=== PATIENT | female | born 1950 | race Caucasian/White ===

== ENCOUNTER → 2019-02-21 19:19 | Outpatient (REF) | payer MEDICARE, MEDICAID, SELFPAY ==
[2019-02-21 20:27] LABS: Vitamin D 25 Hydroxy (D3) 29.7 ng/mL (30.0-100.0)
[2019-02-21 20:41] LABS: Thyroid Stimulating Hormone 1.09 uIU/mL (0.47-4.68)
[2019-02-21 21:15] LABS: Vitamin B12 367 pg/mL (239-931)
== END ==
LOC: LAB 19:19
PROVIDERS: PCP Family Medicine Geriatric Medicine; Visit Provider Family Medicine Geriatric Medicine
DX: B18.2 Chronic viral hepatitis C (principal); G89.4 Chronic pain syndrome; Z13.29 Encounter for screening for other suspected endocrine disorder; M81.0 Age-related osteoporosis without current pathological fracture; M79.7 Fibromyalgia
CPT/HCPCS: 36415; 82306; 82607; 84443; 87522

== ENCOUNTER → 2020-08-13 13:11 | Outpatient (CLI) | payer MEDICARE, MEDICAID, SELFPAY ==
--- NOTE | 2020-08-13 | DI.MRI.S_ITS ---
PROCEDURE: MR LUMBAR SPINE WO CON INDICATIONS: LUMBAR FRACTURE TECHNIQUE: Noncontrast sagittal T1 spin echo and T2 fast echo, sagittal STIR, axial T1 and T2 fast spin echo through the lumbar spine. In cases with scoliosis, additional coronal T2 fast spin echo may be performed. COMPARISON: [facility], CR, XR LUMBAR SPINE 2 OR 3 VIEWS, 07/24/2020, 11:48. FINDINGS: Image quality: Excellent. Alignment and Curvature: 5 lumbar type vertebral bodies are present by plain film. There is mild, grade 1 retrolisthesis of L1 on L2 and L2 on L3. Mild grade 1 anterolisthesis L3 on L4. Bone Marrow: Marrow is of normal overall signal. No acute vertebral body compression fractures. There is moderate ill-defined STIR signal elevation within the inferior L3 and superior L4 endplates adjacent to the L3-L4 intervertebral disc. Mild reactive signal within the endplates adjacent to the T11-T12, L1-L2, L4-L5 and L5-S1 intervertebral discs. Moderate chronic wedging of T12. Mild chronic wedging of L1. Posterior T11 hemangiomata. Spinal Cord: Conus medullaris terminates at the upper L2 level. Visualized cord demonstrates normal signal and size. Paraspinous Soft Tissues: No paravertebral masses. L1-L2: Moderate disc desiccation. Mild disc height loss. Mild diffuse disc bulge. Mild bilateral facet and ligamentum flavum hypertrophy. Mild canal stenosis. No foraminal stenosis. L2-L3: Moderate disc height loss and desiccation. Mild diffuse disc bulge. Mild facet and ligamentum flavum hypertrophy. Mild canal stenosis. Mild bilateral foraminal stenosis. L3-L4: Curvilinear high T2 fluid signal intensity within the L3-L4 intervertebral disc. Mild facet and ligamentum flavum hypertrophy. Mild epidural lipomatosis. Mild canal stenosis. Moderate left and mild right foraminal stenosis. Abutment of the left L3 nerve root lateral to the neural foramen. L4-L5: Moderate disc height loss and desiccation. Mild diffuse disc bulge. Mild facet and ligamentum flavum hypertrophy. Mild canal stenosis. No foraminal stenosis. L5-S1: Moderate disc height loss and desiccation. Mild diffuse disc bulge. Mild bilateral facet hypertrophy. Mild canal stenosis. Mild left and moderate right foraminal stenosis. IMPRESSION: 1. Abnormal signal intensity within the L3-L4 intervertebral disc, as well as within the adjacent L3 and L4 endplates. Findings may indicate discitis/osteomyelitis. Findings may also represent posttraumatic or degenerative sequelae. Clinical and laboratory correlation recommended. 2. Multilevel degenerative disc and facet disease, as well as ligamentum flavum hypertrophy and epidural lipomatosis. 3. Mild multilevel canal stenosis. 4. Multilevel foraminal stenosis, worst at L3-L4 and L5-S1, where there are moderate foraminal stenosis present. 5. Disc abutment of the left L3 nerve root lateral to the L3-L4 neural foramen. Recommend correlation with clinical symptoms to ascertain relevance of this finding. 6. Moderate chronic T12 compression fracture. Mild chronic L1 compression fracture. 7. Findings will be relayed by the call center staff. Dictated by: Racheal Calderon M.D. on 08/13/2020 at 16:09 Approved by: Racheal Calderon M.D. on 08/13/2020 at 16:17
--- NOTE | 2020-08-13 13:16 | DI.MRI.S_ITS ---
PROCEDURE: MR THORACIC SPINE WO CON INDICATIONS: Segmental and somatic dysfunction of thoracic region TECHNIQUE: Noncontrast sagittal T1 spine echo and T2 fast spin echo, sagittal STIR, axial T1 and T2 fast spin echo through the thoracic spine. COMPARISON: [facility], CR, XR THORACIC SPINE 2 VIEWS, 07/23/2020, 12:53. FINDINGS: Image quality: Excellent. Alignment and Curvature: There is mild diffuse thoracic kyphosis and otherwise normal bony alignment. Bone Marrow: Marrow is of normal overall signal. No acute vertebral body compression fractures. There is moderate chronic wedging of T12. Mild chronic wedging of L1. Spinal Cord: Visualized spinal cord is normal in size and signal. Paraspinous Soft Tissues: No paravertebral masses. There is a 20 mm diameter left thyroid mass which is homogeneously increased in T2 intensity. Disc space levels: Multilevel disc desiccation. Mild retropulsion at the superior T12 level, causing mild canal stenosis. No foraminal stenosis. IMPRESSION: 1. Multilevel degenerative disc disease. 2. Moderate chronic wedging of T12 associated with mild canal stenosis. 3. Left thyroid mass; this could be further assessed with ultrasound, if clinically indicated. Dictated by: Racheal Calderon M.D. on 08/13/2020 at 15:46 Approved by: Racheal Calderon M.D. on 08/13/2020 at 15:52
== END ==
PROVIDERS: PCP Family Medicine; Referring Provider Family Medicine; Visit Provider Family Medicine
DX: M99.02 Segmental and somatic dysfunction of thoracic region (principal); S32.030D Wedge compression fracture of third lumbar vertebra, subsequent encounter for fracture with routine healing; S22.080D Wedge compression fracture of T11-T12 vertebra, subsequent encounter for fracture with routine healing; M51.34 Other intervertebral disc degeneration, thoracic region; M48.04 Spinal stenosis, thoracic region; M48.061 Spinal stenosis, lumbar region without neurogenic claudication; E07.9 Disorder of thyroid, unspecified; M48.07 Spinal stenosis, lumbosacral region; E88.2 Lipomatosis, not elsewhere classified
CPT/HCPCS: 72146; 72148

== ENCOUNTER 2020-09-24 12:07 | Day surgery (SDC) | payer MEDICARE, MEDICAID, SELFPAY ==
[2020-09-20 08:08] VITALS: BMI 23.6
[2020-09-24] VITALS (14 sets, daily range): BP systolic 139–166; BP diastolic 70–89; PULSE 30–85; RESP 10–26; TEMP 36.5–37.3; O2SAT 94–100; BMI 23.6
--- NOTE | 2020-09-24 | DI.RAD.S_ITS ---
PROCEDURE: XR LUMBAR SPINE MIN 4V INDICATIONS: L 3 L4 KYPHOPLASTY TECHNIQUE: 4 views of the lumbar spine acquired. COMPARISON: [facility], MR, MR LUMBAR SPINE WO CON, 08/13/2020, 13:57. FINDINGS: Bones: Intraoperative and immediate postoperative evaluation in this patient undergoing sequential L3 and L4 kyphoplasty procedures. Prior MR scanning 08/13/20 had identified marrow edema involving L3 and L4 consistent with osteoporotic compression fractures and L3 inferior endplate upward bowing. Vertebroplasty/kyphoplasty bone-cement is centrally positioned, without extension into the spinal canal. Normal appearance as expected, at completion of the procedure. Soft tissues: Overlying bowel gas pattern is normal. No suspicious soft tissue calcifications. Flexion/extension: There is normal range of motion, with preserved normal alignment. IMPRESSION: L3 and L4 sequential kyphoplasty/vertebroplasty bone cement placement centrally within the medullary space, with no extension of bone cement into the spinal canal. Dictated by: Ward Perez M.D. on 09/24/2020 at 15:42 Approved by: Ward Perez M.D. on 09/24/2020 at 15:45
--- NOTE | 2020-09-24 | PATH_ITS ---
[facility] Accession Number: [id number] . 01 Material submitted: . PART A: bone - L3 BIOPSY PART B: bone - L4 BIOPSY . 01 Clinical history: . SDC . 02 Diagnosis: A. Bone, L3, Biopsy: Fragments of lamellar bone with reactive/reparative changes. Bone marrow with trilineage hemantopoiesis. No evidence of neoplasm. . B. Bone, L4, Biopsy: Fragments of lamellar bone with reactive/reparative changes. Bone marrow with trilineage hematopoiesis. No evidence of neoplasm. MRV 09/26/2020 1644 Local . 02 Electronically signed: . Robyn Way MD, Pathologist NPI- [id number] . 01 Gross description: . A. Received in formalin, labeled L3 biopsy and consists of multiple randall-pink trabeculated fragments of bone measuring 0.3 x 0.3 x 0.2 cm in aggregate. The specimen is entirely submitted following decalcification in cassette A1. B. Received in formalin, labeled L4, and consists of multiple randall-pink trabeculated fragments of bone measuring 0.6 x 0.5 x 0.2 cm in aggregate. The specimen is entirely submitted following decalcification in cassette B1. ([id number]) /MRV 09/25/2020 1122 Local . 02 Pathologist provided ICD-10: M80.00XA . 02 CPT . 021482, 354251 Performed at: 01 [facility] [address] [id number] MD Milton Bergeron MD Phone: [phone] Performed at: 02 [facility] [address] [place] [id number] MD Phone: [phone]
[2020-09-24] MEDS: LACTATED RINGERS 1,000 ML 42 ML IV ×2 (12:37→14:18)
--- NOTE | 2020-09-24 12:41 | P.OP_ITS ---
Operative Date/Time/Diagnoses Date of procedure: 09/24/20 Time of procedure: 13:55 Pre-op diagnosis: L3 and L4 compression fractures Osteoporosis with current fracture Back pain Post-op diagnosis: same Procedure & Clinicians Procedure: L3 and L4 kyphoplasties Same procedure as scheduled: Yes Indications: [age] year old female with intractable pain from acute compression fractures. They had failed conservative management and requested operative intervention. Risks and benefits of surgery were discussed and appropriate consents were obtained. Surgeon: Jakob Johnson Click Yes if Unassisted: Yes Anesthesia Type: General Operative Notes Findings: None Closure Type: primary Specimen(s): other (L3 and L4 vertebral biopsies) Estimated Blood Loss (mL): 15 Procedure in detail: The patient was brought to the operating room and intubated on the table. They were then rolled over to the well-padded prone position. Time-out was performed. We confirmed positioning with two fluoroscopy views. The back was prepped and draped in the standard sterile fashion. Preoperative antibiotics were given. Using fluoroscopic guidance, the planned incision site was infiltrated with Marcaine with epinephrine and injected down to the entry site of the left pedicle of L3. A small stab incision was made and we advanced a Jamshiedi needle down the left pedicle into the vertebral body. A bone biopsy was harvested from this and sent to pathology as well as to microbiology. We then passed the DFine osteotome and opened it up to create a void inside the vertebral body. We then cannulated the left pedicle of L4 the same fashion and sent a separate L4 biopsy to pathology and combined the bone for microbiology to the other sample. We passed the osteotome to create a void inside the vertebral body. We then began injecting the cement. This was done with frequent fluoroscopy imag ing. We were not getting enough cement to go across the vertebral body. And then used Marcaine, stab incision, and then placed a Jamshidi needle down the right pedicle of L3 under fluoroscopic guidance. We opened up a void with the osteotome and then injected on the right side until there was good bilateral fill of L3. There was no extravasation. Once we had good fill of the L3 vertebral body the injection was stopped and we went to L4. We injected until we had good fill of the L4 vertebral body. This successfully went across the vertebral body from just the left side. The trocars were removed. Final x-rays were taken. She had oozed a fair amount during this procedure with blood coming up from the trocars. Total blood loss was about 15 mL. No bleeding by the end of surgery. The wound was cleaned. Steri-Strips and sterile dressing were placed. Patient was rolled over, extubated, and brought to recovery without complications. Complications: none Post-operative Condition: stable Disposition: PACU Plan for aftercare: Outpatient. Activity as tolerated.
--- NOTE | 2020-09-24 12:41 | PM.PREOP ---
Pre-operative Note COVID-19 COVID-19 status: Negative Result date/Date tested (Pos, Neg/Pending): 09/22/20 Interval Note History & Physical reviewed/Exam performed by Physician: Yes Changes to H&P: No
[2020-09-24] MEDS: CLINDAMYCIN 900 MG/50 ML PIGGYBACK 50 MG IV (13:01)
--- NOTE | 2020-09-24 13:16 | SUR.OPER ---
Prone on padded OR bed, head in foam head support, gel chest rolls, gel pad under knees, pillow under lower legs, toes free of pressure, arms secured on padded arm boards at <90 degrees abduction. Safety belt at thigh.
[2020-09-24] MEDS: BUPIVACAINE 0.25% W/ EPI 30 ML VIAL 60 ML INJ (13:37)
[2020-09-24] MEDS: fentaNYL 100 MCG/2 ML INJ IV ×3 (14:19→14:56)
[2020-09-24] MEDS: ONDANSETRON 4 MG/2 ML INJ IV (14:19)
[2020-09-24] MEDS: ALBUTEROL/IPRATROPIUM 3 ML AMPUL INH (14:28)
[2020-09-24] MEDS: OXYCODONE IR 5 MG TABLET PO (15:02)
--- NOTE | 2020-09-24 15:04 | SUR.PHASEI ---
Patient appears much more comfortable and coughing has subsided. Pain 4/10. Swallowing pain pill without difficulty and no airway involvement noted. No choking observed.
--- NOTE | 2020-09-24 16:14 | SUR.PHASEII ---
Discharged patient home with friend in stable condition. Patient ambulatory to bathroom with cane without assistance to void prior to d/c. Pain 01/01. All belongings returned to patient.
== END 2020-09-24 16:06 | disposition home or self-care (01) ==
PROVIDERS: PCP Family Medicine; Referring Provider Orthopaedic Surgery; Visit Provider Orthopaedic Surgery
PROC: (CPT 22514; principal; 2020-09-24 14:45)
DX: M80.08XA Age-related osteoporosis with current pathological fracture, vertebra(e), initial encounter for fracture (principal); M54.5 Low back pain; S32.040A Wedge compression fracture of fourth lumbar vertebra, initial encounter for closed fracture; S32.030A Wedge compression fracture of third lumbar vertebra, initial encounter for closed fracture; I10 Essential (primary) hypertension
CPT/HCPCS: 22514; 22515; 72110; 76000; 87070; 87075; 87205; C1776; J0330; J1100; J2405; J2704; J3010

== ENCOUNTER 2023-09-09 12:59 | Emergency (ER) | payer MEDICARE, MEDICAID, SELFPAY ==
[2023-09-09] VITALS (12 sets, daily range): BP systolic 127–181; BP diastolic 71–99; PULSE 61–94; RESP 22; TEMP 37.2; O2SAT 94–98; BMI 23.6
--- NOTE | 2023-09-09 13:48 | DI.MRI.S_ITS ---
PROCEDURE: MR LUMBAR SPINE WO CON INDICATIONS: Low back pain with incontinence TECHNIQUE: Noncontrast sagittal T1 spin echo and T2 fast echo, sagittal STIR, and T2 fast spin echo through the lumbar spine. In cases with scoliosis, additional coronal T2 fast spin echo may be performed. COMPARISON: [facility], CR, XR LUMBAR SPINE MIN 4V, 09/24/2020, 13:27. [facility], MR, MR LUMBAR SPINE WO CON, 08/13/2020, 13:57. [facility], MR, MR CERVICAL SPINE WO CON, 09/09/2023, 14:34. [facility], CT, CT ABDOMEN PELVIS W CON, 09/09/2023, 15:19. FINDINGS: Image quality: Excellent. Alignment and Curvature: There is normal bony alignment. Bone Marrow: Marrow is of normal overall signal. Numerous levels of compression deformity can be seen, including at T10, T12, L1, and L4. Abnormal decreased T1 weighted signal and increased T2 weighted signal with increased STIR signal can be seen within the T10 and T12, which is consistent with acute to subacute fractures. All signal is also partially seen within the T10 level. Prior vertebroplasty cement can be seen at the L3 and L4 levels. Additionally, there are abnormal foci of increased STIR signal seen within the T11, T12, and L1 levels. Spinal Cord: Conus medullaris terminates at the L1 level. Visualized cord demonstrates normal signal and size. Paraspinous Soft Tissues: No paravertebral masses. T12-L1: Normal appearance. L1-L2: Normal appearance. L2-L3: The disc height is well-preserved. Loss of disc signal is seen at this level. A mild degree of generalized disc osteophyte complex is seen. Mild facet joint hypertrophy is seen. There is mild left-sided and no right-sided neural foraminal narrowing. Mild central canal narrowing is seen. When comparison is made with the prior images, these findings are similar. L3-L4: The disc height is well-preserved. Loss of disc signal is seen at this level. Reactive marrow endplate changes are seen posteriorly, which are hypointense on T1-weighted imaging and hyperintense on T2 weighted imaging, which is most consistent with edema (Modic type I changes). Mild to moderate disc bulge is seen. Moderate facet joint hypertrophy is seen. There is moderate right-sided and at least moderate left-sided neural foraminal narrowing. There is a degree of compression seen upon the exiting left L3 nerve root. Moderate central canal narrowing is seen. There is mild progression compared to 2020. L4-L5: The disc height is well-preserved. Loss of disc signal is seen at this level. Mild to moderate disc bulge is seen. Mild to moderate facet hypertrophy is seen. There is fluid within the left facet joint. Mild bilateral neural foraminal narrowing is seen. Mild central canal narrowing is seen. When comparison is made with the prior images, these findings are similar. L5-S1: The disc height is well-preserved. Loss of disc signal is seen at this level. Mild generalized disc bulge is seen. Mild to moderate facet hypertrophy is seen. Mild bilateral neural foraminal narrowing is seen. Mild central canal narrowing is seen. When comparison is made with the prior images, these findings are similar. IMPRESSION: Acute to subacute fractures seen at T10 and T12. Prior fractures can be seen elsewhere, including vertebroplasty cement at L3 and L4. Scattered sites of abnormal bone marrow foci can be seen, which are moderately suspicious for bony metastatic disease in a patient of this age. Please correlate with patient history. If clinically appropriate, please consider a dedicated whole-body nuclear medicine bone scan for further evaluation. Multiple levels of underlying degenerative change are seen, with mild progression at L3-L4 compared to 2020. Dictated by: Masood Burr M.D. on 09/09/2023 at 15:05 Approved by: Masood Burr M.D. on 09/09/2023 at 15:11
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
[2023-09-09 13:53] LABS: Add Manual Diff / Slide Review NO; Basophils Absolute Auto 0 /uL (0-100); Basophils Percent Auto 0.4 % (0-2); Eosinophils Absolute Auto 100 /uL (0-450); Eosinophils Percent Auto 1.2 % (2-4); Hematocrit 40.4 % (36-46); Hemoglobin 14.1 g/dL (12.0-16.0); Lymphocytes Absolute Auto 1400 /uL (1100-4500); Lymphocytes Percent Auto 27.9 % (25-40); Mean Corpuscular Hemoglobin 32.3 PG (26-34); Mean Corpuscular Volume 92.2 fL (80-100); Monocytes Absolute Auto 600 /uL (0-900); Monocytes Percent Auto 12.6 % (3-14); Neutrophils Absolute Auto 2900 /uL (1500-7000); Neutrophils Percent Auto 57.9 % (50-75); Platelet Count 114 X10^3/uL (150-400); Red Blood Cell Count 4.38 X10^6/uL (4.0-5.2); Red Cell Distribution Width 12.8 % (11.6-14.8)
[2023-09-09] MEDS: HYDROMORPHONE 1 MG INJ IV ×2 (13:56→15:48)
--- NOTE | 2023-09-09 13:56 | DI.CT.S_ITS ---
PROCEDURE: CT ABDOMEN PELVIS W CON INDICATIONS: RLQ ABD pain TECHNIQUE: After the administration of intravenous contrast, axial sections acquired from the lung bases to the pubic symphysis. Coronal and sagittal reformats were performed. For radiation dose reduction, the following was used: automated exposure control, adjustment of mA and/or kV according to patient size. COMPARISON: [facility], MR, MR LUMBAR SPINE WO CON, 08/13/2020, 13:57. [facility], MR, MR LUMBAR SPINE WO CON, 09/09/2023, 14:34. [facility], CT, ABDOMEN/PELVIS WITH CONTRAST, 07/24/2008, 10:19. FINDINGS: Image quality: Excellent. Lung bases: Unremarkable. Heart: No significant findings. Miscellaneous: Bilateral mammoplasties. ABDOMEN: Liver: Surface nodularity of the liver is consistent with cirrhotic change.. Gallbladder: Unremarkable. Biliary ducts: Unremarkable. Pancreas: Unremarkable. Spleen: Borderline splenomegaly. Spleen measures 13.3 cm. . Adrenal Glands: Unremarkable. Kidneys and Ureters: 2 mm nonobstructing right renal stone. Otherwise unremarkable.. Stomach and Bowel: Stomach, small bowel loops, and colon are unremarkable. Moderately large right colonic and cecal fecal debris. Normal appendix. Peritoneum: No abnormal intraperitoneal fluid. No free air. Ventral Wall: No hernias. Abdominal Nodes: No retroperitoneal or mesenteric adenopathy by size criteria. Vessels: Aorta and inferior vena cava are normal in size. PELVIS: Pelvic Organs: Unremarkable. Bladder: Unremarkable. Pelvic Nodes: No enlarged lymph nodes. Miscellaneous: No hernias are seen. Bones: Old treated compressions of L3 and L4. Old L1 compression. A T9 compression is minimally imaged on the MRI from today, and the inferior aspect has edema consistent with acute or subacute fracture. Acute or subacute [id number] T10 compression. A T12 compression is acute or subacute on chronic. IMPRESSION: 1. Severe osteoporosis with numerous compression fractures, a number of which are chronic and 3 of which, involving T9, T10, and T12, have an acute or subacute component. 2. Large right colonic fecal debris can be associated with right abdominal pain. 3. Normal appendix. 4. Cirrhosis. 5. Borderline splenomegaly. Dictated by: Stephen Dubose M.D. on 09/09/2023 at 16:50 Approved by: Stephen Dubose M.D. on 09/09/2023 at 16:59
[2023-09-09 14:03] LABS: BUN Creatinine Ratio 23.8 (6-22); Blood Urea Nitrogen 10 mg/dL (7-17); Calcium 9.6 mg/dL (8.4-10.2); Carbon Dioxide 24 mmol/L (22-32); Chloride 103 mmol/L (98-107); Estimated Glomerular Filt Rate > 60 mL/min (>60); Glucose 126 mg/dL (80-110); HEMOLYSIS 68 (0-50); Potassium 4.4 mmol/L (3.4-5.1); Sodium 133 mmol/L (137-145)
[2023-09-09 14:23] LABS: Appearance Urine UA CLEAR; Bilirubin Urine UA NEGATIVE (NEGATIVE); Color Urine UA YELLOW; Glucose Urine UA NEGATIVE (Negative); Ketones Urine UA NEGATIVE (NEGATIVE); Leukocyte Esterase Urine UA NEGATIVE (NEGATIVE); Nitrite Urine UA NEGATIVE (Negative); Occult Blood Urine UA NEGATIVE (Negative); Protein Urine UA NEGATIVE (Negative); Specific Gravity Urine UA <=1.005 (1.000-1.035); Urobilinogen Urine UA 0.2 E.U./dL (0.2)
[2023-09-09 14:35] LABS: pH Urine UA 6.5 (4.5-8.0)
[2023-09-09 14:36] LABS: Bacteria Urine None Seen; Culture Indicated Urine Cult Not Indicated; RBC Urine None Seen (0-5/HPF); Squamous Epithelial Cell Urine 0-1 /HPF (0-5/HPF); WBC Urine 0-1/HPF (0-5/HPF)
--- NOTE | 2023-09-09 14:42 | PC.NURSE ---
Patient left for MRI with warehouse technician at 1420.
== END 2023-09-09 18:10 | disposition home or self-care (01) ==
PROVIDERS: Emergency Provider Emergency Medicine; PCP Family Medicine
DX: S22.079A Unspecified fracture of T9-T10 vertebra, initial encounter for closed fracture (principal); S22.089A Unspecified fracture of T11-T12 vertebra, initial encounter for closed fracture; X58.XXXA Exposure to other specified factors, initial encounter; R03.0 Elevated blood-pressure reading, without diagnosis of hypertension
CPT/HCPCS: 36415; 51798; 72141; 72148; 74177; 80048; 81001; 85025; 87086; 96374; 96376; 99284; J1170